=== PATIENT | female | born 1990 | race African-American/Black ===

== ENCOUNTER 2022-10-05 14:03 | Outpatient (CLI) | payer OTHER | END 2022-10-05 14:04 | disposition home or self-care (01) | LOC: BICULT 14:03 | PROVIDERS: ATTEND Nurse Practitioner Women's Health | DX: O09.893 Supervision of other high risk pregnancies, third trimester (principal); Z3A.33 33 weeks gestation of pregnancy | CPT/HCPCS: 76805 ==